=== PATIENT | female | born 1995 | race Asian ===

== ENCOUNTER 2023-04-19 17:34 | Emergency (ER) | payer OTHER ==
[~2023-04-19] VITALS: Ht 160 cm; Wt 73.2 kg
[2023-04-19 19:30] LABS: INFLUENZA A-RTPCR,COMBO NEGATIVE (NEGATIVE); INFLUENZA B-RTPCR,COMBO NEGATIVE (NEGATIVE); SARS COVID19 RTPCR, COMBO NEGATIVE (NEGATIVE)
[2023-04-19 19:50] LABS: RESPIRATORY SYNCYTIAL VRS-PCR POSITIVE (NEGATIVE)
[2023-04-19 20:08] VITALS: BP 143/81; PULSE 85; RESP 16; TEMP 97.8
== END 2023-04-19 20:14 | disposition home or self-care (01) ==
LOC: EMS 17:48
DX: H92.01 Otalgia, right ear (principal); B97.4 Respiratory syncytial virus as the cause of diseases classified elsewhere; Z20.822 Contact with and (suspected) exposure to COVID-19
CPT/HCPCS: 99283; 0241U; 87430